=== PATIENT | female | born 1960 | race Hispanic/Latino ===

== ENCOUNTER 2016-09-27 18:06 | Emergency (ER) | payer SELFPAY ==
[2016-09-27 20:48] LABS: Hematocrit 38.7 % (30.3-42.9); Hemoglobin 12.7 gm/dl (10.1-14.3); Mean Corpuscular HGB Conc 33 % (30-34); Mean Corpuscular Hemoglobin 27 pg (28-32); Mean Corpuscular Volume 84 fl (79-97); Platelet Count 231 K/mm3 (140-440); Red Blood Count 4.62 M/mm3 (3.65-5.03); Red Cell Distribution Width 14.3 % (13.2-15.2); White Blood Count 5.3 K/mm3 (4.5-11.0)
[2016-09-27 21:11] LABS: Anion Gap 20 mmol/L; BUN/Creatinine Ratio 14.28; Blood Urea Nitrogen 10 mg/dL (7-17); Carbon Dioxide 25 mmol/L (22-30); Chloride 101.4 mmol/L (98-107); Glucose 139 mg/dL (65-100); Sodium 142 mmol/L (137-145)
[2016-09-27 21:51] LABS: Bacteria,Urine 1+ /HPF (Negative); Bilirubin,Urine NEG (Negative); Blood,Urine NEG (Negative); Ketones,Urine NEG (Negative); Leukocyte Esterase,Urine MOD (Negative); Mucus,Urine 1+ /HPF; Nitrite,Urine NEG (Negative); Urobilinogen,Urine < 2.0 mg/dL (<2.0)
--- NOTE | 2016-09-27 23:42 | Emergency Department Report ---
ED General Adult HPI - General Chief complaint: Medical Clearance Stated complaint: MEDS REFILL Time Seen by Provider: 09/27/16 23:29 Source: patient, RN notes reviewed Mode of arrival: Ambulatory Limitations: No Limitations - History of Present Illness Initial comments: This is a 56-year-old female. She is previously unknown to me. She reports a past medical history of diabetes, seizure, irregular heartbeat, multiple sclerosis, bradycardia, tachycardia. The patient presents to the ER requesting a refill on her propranolol. She reports that she is on propranolol since 1984. Because of insurance issue she has not been able to follow-up with a primary care doctor on a regular basis, and she is following up at an outpatient clinic. She reports intermittent shortness of breath, which has been present for months to years. This is not new, worsening or different. She reports that she feels like her heart is skipping a beat intermittently. There is no chest pain. The patient denies diaphoresis, vomiting, leg pain, leg swelling, recent trips greater than 4 hours. She reports that her main complaint is the desire to have her propranolol refill. -: Gradual, month(s), year(s) Consistency: intermittent Improves with: none Worsens with: none Associated Symptoms: shortness of breath. denies: confusion, chest pain, cough - Related Data Previous Rx's Medication Instructions Recorded Last Taken Type Propranolol HCl 20 mg PO BID #60 tab 09/28/16 Unknown Rx Allergies Allergy/AdvReac Type Severity Reaction Status Date / Time aspirin Allergy Unknown Verified 09/27/16 19:21 doxycycline Allergy Rash Verified 09/27/16 19:21 Penicillins Allergy Rash Verified 09/27/16 19:21 yellow dye Allergy Nausea Verified 09/27/16 19:21 ED Review of Systems ROS: Stated complaint: MEDS REFILL Other details as noted in HPI Constitutional: denies: fever Eyes: denies: eye discharge ENT: denies: epistaxis Respiratory: shortness of breath Cardiovascular: palpitations Gastrointestinal: denies: abdominal pain Genitourinary: as per HPI Musculoskeletal: denies: back pain Skin: denies: lesions Psychiatric: anxiety ED Past Medical Hx - Past Medical History Hx Diabetes: Yes Hx Seizures: Yes Additional medical history: tachycardia,irreg HR,multiple sclerosis,breast CA - Surgical History Additional Surgical History: right mastectomy 2005 - Social History Smoking Status: Current Every Day Smoker Substance Use Type: None - Medications Home Medications: Home Medications Medication Instructions Recorded Confirmed Last Taken Type Propranolol HCl 20 mg PO BID #60 tab 09/28/16 Unknown Rx ED Physical Exam - General Limitations: No Limitations General appearance: alert, in no apparent distress - Head Head exam: Present: atraumatic, normocephalic - Eye Eye exam: Present: normal appearance, PERRL, EOMI. Absent: nystagmus - ENT ENT exam: Present: normal exam, normal orophraynx, mucous membranes moist, normal external ear exam - Neck Neck exam: Present: normal inspection, full ROM. Absent: tenderness, meningismus - Respiratory Respiratory exam: Present: normal lung sounds bilaterally. Absent: respiratory distress, wheezes, rales, rhonchi, stridor, chest wall tenderness - Cardiovascular Cardiovascular Exam: Present: regular rate, normal rhythm, normal heart sounds. Absent: bradycardia, tachycardia, irregular rhythm, systolic murmur, diastolic murmur, rubs, gallop - GI/Abdominal GI/Abdominal exam: Present: soft, normal bowel sounds. Absent: distended, tenderness, guarding, rebound, rigid, pulsatile mass - Extremities Exam Extremities exam: Present: normal inspection, full ROM, normal capillary refill. Absent: tenderness, pedal edema, joint swelling, calf tenderness - Back Exam Back exam: Present: normal inspection, full ROM. Absent: tenderness, CVA tenderness (R), CVA tenderness (L), muscle spasm, paraspinal tenderness, vertebral tenderness - Neurological Exam Neurological exam: Present: alert, oriented X3, normal gait, other (Extraocular movements intact. Tongue midline. No facial droop. Facial sensation intact to light touch in the V1, V2, V3 distribution bilaterally. 5 and 5 strength in 4 extremities.. Sensation is intact to light touch in 4 extremities.). Absent : motor sensory deficit - Psychiatric Psychiatric exam: Present: normal affect, normal mood - Skin Skin exam: Present: warm, dry, intact, normal color. Absent: rash ED Course Vital Signs 09/27/16 09/28/16 09/28/16 19:14 00:32 01:27 Temperature 98.4 F 98.0 F Pulse Rate 81 72 Respiratory 18 20 20 Rate Blood Pressure 176/96 Blood Pressure 174/78 [Left] O2 Sat by Pulse 100 98 98 Oximetry - Reevaluation(s) Reevaluation #1: 09/28/16 00:32 Differential diagnosis: Medication refill, arrhythmia, electrolyte imbalance, thyroid abnormality Assessment and plan: 56-year-old female with months to years of intermittent shortness of breath, whose main complaint is to have her propanolol refilled. She is not having chest pain, she has chronic shortness of breath which is not new, worsening or different. Shortness of breath is not her main complaint. Her physical examination is unremarkable, her pulmonary examination is unremarkable. Initial EKG demonstrated bigeminy, which essentially resolved. Her electrolytes were unremarkable, thyroid panel is ordered, the patient prefers to have a primary care doctor or deputy k 9 followed up as an outpatient. The patient's case and EKGs were specifically discussed with the deputy k 9 software quality automation engineer, Dr. Kar Tubbs, who recommended propanolol, 20 mg twice daily, and recommended that the patient follow-up with him in the office within the next week. The patient is instructed as to the importance of outpatient primary care and cardiology follow-up. She will be discharged at this time. Return precautions are extensively reviewed. Given duration of symptoms, lack of acute changes, I don't believe the patient requires acute coronary syndrome risk stratification at this time. ED Medical Decision Making - Lab Data Result diagrams: 09/27/16 20:35 09/27/16 20:35 Vital Signs 09/27/16 09/28/16 19:14 00:32 Temperature 98.4 F 98.0 F Pulse Rate 81 72 Respiratory 18 20 Rate Blood Pressure 176/96 Blood Pressure 174/78 [Left] O2 Sat by Pulse 100 98 Oximetry Lab Results 09/27/16 09/27/16 09/27/16 Range/Units 20:35 20:35 20:35 WBC 5.3 (4.5-11.0) K/mm3 RBC 4.62 (3.65-5.03) M/mm3 Hgb 12.7 (10.1-14.3) gm/dl Hct 38.7 (30.3-42.9) % MCV 84 (79-97) fl MCH 27 L (28-32) pg MCHC 33 (30-34) % RDW 14.3 (13.2-15.2) % Plt Count 231 (140-440) K/mm3 Sodium 142 (137-145) mmol/L Potassium 4.0 (3.6-5.0) mmol/L Chloride 101.4 (98-107) mmol/L Carbon Dioxide 25 (22-30) mmol/L Anion Gap 20 mmol/L BUN 10 (7-17) mg/dL Creatinine 0.7 (0.7-1.2) mg/dL Estimated GFR > 60 ml/min BUN/Creatinine Ratio 14.28 % Glucose 139 H (65-100) mg/dL Calcium 9.0 (8.4-10.2) mg/dL Magnesium (1.7-2.3) mg/dL Troponin T < 0.010 (0.00-0.029) ng/mL Urine Color (Yellow) Urine Turbidity (Clear) Urine pH (5.0-7.0) Ur Specific [place] (1.003-1.030) Urine Protein (Negative) mg/dL Urine Glucose (UA) (Negative) mg/dL Urine Ketones (Negative) mg/dL Urine Blood (Negative) Urine Nitrite (Negative) Urine Bilirubin (Negative) Urine Urobilinogen (<2.0) mg/dL Ur Leukocyte Esterase (Negative) Urine WBC (Auto) (0.0-6.0) /HPF Urine RBC (Auto) (0.0-6.0) /HPF U Epithel Cells (Auto) (0-13.0) /HPF Urine Bacteria (Auto) (Negative) /HPF Urine Mucus /HPF 09/27/16 09/27/16 Range/Units 20:35 21:15 WBC (4.5-11.0) K/mm3 RBC (3.65-5.03) M/mm3 Hgb (10.1-14.3) gm/dl Hct (30.3-42.9) % MCV (79-97) fl MCH (28-32) pg MCHC (30-34) % RDW (13.2-15.2) % Plt Count (140-440) K/mm3 Sodium (137-145) mmol/L Potassium (3.6-5.0) mmol/L Chloride (98-107) mmol/L Carbon Dioxide (22-30) mmol/L Anion Gap mmol/L BUN (7-17) mg/dL Creatinine (0.7-1.2) mg/dL Estimated GFR ml/min BUN/Creatinine Ratio % Glucose (65-100) mg/dL Calcium (8.4-10.2) mg/dL Magnesium 2.1 (1.7-2.3) mg/dL Troponin T (0.00-0.029) ng/mL Urine Color Yellow (Yellow) Urine Turbidity Slightly-cloudy (Clear) Urine pH 5.0 (5.0-7.0) Ur Specific [place] 1.017 (1.003-1.030) Urine Protein 30 mg/dl (Negative) mg/dL Urine Glucose (UA) Neg (Negative) mg/dL Urine Ketones Neg (Negative) mg/dL Urine Blood Neg (Negative) Urine Nitrite Neg (Negative) Urine Bilirubin Neg (Negative) Urine Urobilinogen < 2.0 (<2.0) mg/dL Ur Leukocyte Esterase Mod (Negative) Urine WBC (Auto) 28.0 H (0.0-6.0) /HPF Urine RBC (Auto) 5.0 (0.0-6.0) /HPF U Epithel Cells (Auto) 14.0 H (0-13.0) /HPF Urine Bacteria (Auto) 1+ (Negative) /HPF Urine Mucus 1+ /HPF Urinalysis is contaminated, the patient denies irritative and obstructive urinary symptoms. - EKG Data When compared to previous EKG there are: previous EKG unavailable 09/28/16 00:34 Normal axis, QTC 594 ms, premature ventricular contractions, bigeminy, not morphologically consistent with STEMI, no prior EKG available for comparison. Repeat EKG demonstrates resolution of bigeminy, QTC 434 ms, left ventricular hypertrophy, poor R progression, not morphologically consistent with STEMI. Critical care attestation.: If time is entered above; I have spent that time in minutes in the direct care of this critically ill patient, excluding procedure time. ED Disposition Clinical Impression: Medication refill, Arrhythmia Disposition: DISCHARGED TO HOME OR SELFCARE Is pt being admited?: No Does the pt Need Aspirin: No Condition: Stable Instructions: Palpitations (ED) Additional Instructions: Take the medication as directed. Follow up with the primary care doctor or deputy k 9 within the next week. Dr. French Jean is a local primary care doctor. Dr. Cherry Tubbs is a local photo lab specialist. Laboratory studies were sent today to evaluate your thyroid, and they have not resulted thus far. Please have your primary care doctor or photo lab specialist contact the medical records department to obtain these laboratory results. Return to the ER right away with fevers or chills, chest pain, worsened shortness of breath, intractable nausea or vomiting, inability to tolerate liquid feeds, new, worsening or different symptoms. Prescriptions: Propranolol HCl 20 mg PO BID #60 tab Referrals: PRIMARY CARE, [Primary Care Provider] - 3-5 Days CRISTIAN TUBBS MD [Staff Physician] - 3-5 Days FRENCH JEAN MD [Staff Physician] - 3-5 Days
[2016-09-28 00:34] VITALS: BP 174/78
== END 2016-09-28 01:30 | disposition home or self-care (01) ==
LOC: ED 18:06
DX: Z76.0 Encounter for issue of repeat prescription (principal); I49.9 Cardiac arrhythmia, unspecified; E11.9 Type 2 diabetes mellitus without complications; F17.200 Nicotine dependence, unspecified, uncomplicated; R56.9 Unspecified convulsions; G35 Multiple sclerosis; Z88.0 Allergy status to penicillin; Z88.1 Allergy status to other antibiotic agents; Z88.5 Allergy status to narcotic agent; Z91.041 Radiographic dye allergy status; Z90.11 Acquired absence of right breast and nipple
CPT/HCPCS: 36415; 80048; 81001; 83735; 84439; 84443; 84484; 85027; 93005; 93010; 99283

== ENCOUNTER 2017-02-17 14:37 | Inpatient (IN) | payer SELFPAY ==
[2017-02-17] MEDS ORDERED: ATIVAN IV ONE (15:23)
[2017-02-17] MEDS ORDERED: ZOFRAN IV ONE (17:04)
--- NOTE | 2017-02-17 18:05 | Emergency Department Report ---
ED Syncope HPI - General Chief Complaint: Seizure Stated Complaint: SEIZURE Time Seen by Provider: 02/17/17 17:53 Source: patient - History of Present Illness Initial Comments: 57-year-old female with complaint of feeling lightheaded and dizzy recently. Patient has had a month's worth of lightheaded and dizziness. Today she was walking in the mall "feel lightheaded. She tried to stand up and then felt like she was "drifting way." She was helped to the ground where she had a seizure. She is a known history of seizure. She denies chest pain fevers chills. She's had a mild cough. Timing/Prior Episodes: single episode today Precipitating Factors: Positive: lightheadedness, rapid heart beat Loss of Consciousness: brief (seconds) Current Symptoms: back to normal, lightheadedness. denies: blurred vision, chest pain, diaphoresis, dizziness, injury - Related Data Allergies/Adverse Reactions: Allergies aspirin Allergy (Verified 09/27/16 19:21) Unknown doxycycline Allergy (Verified 09/27/16 19:21) Rash Penicillins Allergy (Verified 09/27/16 19:21) Rash yellow dye Allergy (Verified 09/27/16 19:21) Nausea Home Medications: Ambulatory Orders Propranolol HCl 20 mg PO BID #60 tab 09/28/16 ED Review of Systems ROS: Stated complaint: SEIZURE Other details as noted in HPI Comment: All other systems reviewed and negative Constitutional: denies: chills, fever Eyes: denies: eye pain, eye discharge, vision change ENT: denies: ear pain, throat pain Respiratory: denies: cough, shortness of breath, wheezing Cardiovascular: palpitations. denies: chest pain Endocrine: no symptoms reported Gastrointestinal: denies: abdominal pain, nausea, diarrhea Genitourinary: denies: urgency, dysuria, discharge Musculoskeletal: denies: back pain, joint swelling, arthralgia Skin: denies: rash, lesions Neurological: denies: headache, weakness, paresthesias Psychiatric: denies: anxiety, depression Hematological/Lymphatic: denies: easy bleeding, easy bruising ED Past Medical Hx - Past Medical History Hx Diabetes: Yes Hx Seizures: Yes Hx HIV: Yes Additional medical history: tachycardia,irreg HR,multiple sclerosis,breast CA - Surgical History Past Surgical History?: Yes Additional Surgical History: right mastectomy 2005 - Social History Smoking Status: Never Smoker Substance Use Type: None - Medications Home Medications: Home Medications Medication Instructions Recorded Confirmed Last Taken Type Propranolol HCl 20 mg PO BID #60 tab 09/28/16 Unknown Rx ED Physical Exam - General Limitations: No Limitations General appearance: alert, in no apparent distress, obese - Head Head exam: Present: atraumatic, normocephalic - Eye Eye exam: Present: normal appearance. Absent: scleral icterus, conjunctival injection - ENT ENT exam: Present: mucous membranes moist - Neck Neck exam: Present: normal inspection. Absent: lymphadenopathy, thyromegaly - Respiratory Respiratory exam: Present: normal lung sounds bilaterally. Absent: respiratory distress, wheezes, rales - Cardiovascular Cardiovascular Exam: Present: tachycardia, irregular rhythm (occasional PVCs). Absent: systolic murmur, diastolic murmur, rubs, gallop - GI/Abdominal GI/Abdominal exam: Present: soft, normal bowel sounds. Absent: distended, tenderness - Extremities Exam Extremities exam: Present: normal inspection - Back Exam Back exam: Present: normal inspection - Neurological Exam Neurological exam: Present: alert, oriented X3 - Psychiatric Psychiatric exam: Present: normal affect, normal mood - Skin Skin exam: Present: warm, dry, intact, normal color. Absent: rash ED Course Vital Signs 02/17/17 02/17/17 02/17/17 15:12 15:52 16:00 Temperature 98.2 F Pulse Rate 102 H 103 H Respiratory 16 13 Rate Blood Pressure 176/83 Blood Pressure 149/62 [Left] O2 Sat by Pulse 99 99 97 Oximetry 02/17/17 02/17/17 02/17/17 16:15 16:30 16:45 Temperature Pulse Rate 100 H 98 H 99 H Respiratory 13 13 11 L Rate Blood Pressure 157/71 157/71 162/74 Blood Pressure [Left] O2 Sat by Pulse 98 96 97 Oximetry 02/17/17 02/17/17 02/17/17 17:00 17:16 17:26 Temperature 98.3 F Pulse Rate 98 H 102 H 89 Respiratory 10 L 18 16 Rate Blood Pressure 162/74 162/67 Blood Pressure 149/87 [Left] O2 Sat by Pulse 97 99 99 Oximetry 02/17/17 02/17/17 02/17/17 17:31 17:45 18:01 Temperature Pulse Rate 95 H 94 H 102 H Respiratory 14 13 11 L Rate Blood Pressure 162/61 158/58 171/68 Blood Pressure [Left] O2 Sat by Pulse 98 98 100 Oximetry 02/17/17 02/17/17 02/17/17 18:31 19:11 19:24 Temperature Pulse Rate Respiratory Rate Blood Pressure 171/68 171/68 171/68 Blood Pressure [Left] O2 Sat by Pulse Oximetry ED Medical Decision Making - Lab Data Result diagrams: 02/17/17 18:21 02/17/17 18:21 Laboratory Results - last 24 hr 02/17/17 02/17/17 02/17/17 18:21 18:21 18:21 WBC 6.4 RBC 4.42 Hgb 12.4 Hct 38.4 MCV 87 MCH 28 MCHC 32 RDW 15.0 Plt Count 220 Lymph % (Auto) 30.0 [place] % (Auto) 9.7 H Eos % (Auto) 1.4 Baso % (Auto) 1.2 Lymph # 1.9 [place] # 0.6 Eos # 0.1 Baso # 0.1 Seg Neutrophils % 57.7 Seg Neutrophils # 3.7 PT 14.0 INR 1.03 Sodium 142 Potassium 4.2 Chloride 104.1 Carbon Dioxide 23 Anion Gap 19 BUN 12 Creatinine 0.6 L Estimated GFR > 60 BUN/Creatinine Ratio 20.00 Glucose 97 Calcium 8.9 Magnesium Total Bilirubin 0.30 AST 35 ALT 44 Alkaline Phosphatase 105 Troponin T < 0.010 Total Protein 8.1 Albumin 3.8 L Albumin/Globulin Ratio 0.9 TSH 02/17/17 02/17/17 18:21 18:21 WBC RBC Hgb Hct MCV MCH MCHC RDW Plt Count Lymph % (Auto) [place] % (Auto) Eos % (Auto) Baso % (Auto) Lymph # [place] # Eos # Baso # Seg Neutrophils % Seg Neutrophils # PT INR Sodium Potassium Chloride Carbon Dioxide Anion Gap BUN Creatinine Estimated GFR BUN/Creatinine Ratio Glucose Calcium Magnesium 2.20 Total Bilirubin AST ALT Alkaline Phosphatase Troponin T Total Protein Albumin Albumin/Globulin Ratio TSH 1.060 - EKG Data -: EKG Interpreted by Me - EKG Data 02/17/17 19:45 Sinus tach 102 multiple PVCs no obvious ST-T wave changes. - Radiology Data Radiology results: image reviewed - Medical Decision Making 57-year-old female with recent episodes of lightheadedness dizziness and tachycardia. The course of last months she's had worsening symptoms. Today she felt lightheaded and passing out. She is tachycardic in the room and has multiple PVCs. At this point labs including hematocrit chemistries and TSH look unremarkable. EKG is with multiple PVCs Discussed case with hospitalist and plan admitted to their service. Portions of this chart were dictated with dictation software. There may be dictation errors contained within this note. Critical care attestation.: If time is entered above; I have spent that time in minutes in the direct care of this critically ill patient, excluding procedure time. ED Disposition Clinical Impression: Syncope, Tachycardia Disposition: DC-09 OP ADMIT IP TO THIS HOSP Is pt being admited?: Yes Condition: Stable Instructions: Syncope (ED) Referrals: PRIMARY CARE, [Primary Care Provider] - 3-5 Days
[2017-02-17] MEDS ORDERED: NACL 0.9% 1000 ML 1,000 ML IV ONE (18:06)
[2017-02-17 18:52] LABS: Alanine Aminotransferase 44 units/L (7-56); Albumin 3.8 g/dL (3.9-5); Albumin/Globulin Ratio 0.9 %; Alkaline Phosphatase 105 units/L (35-129); Anion Gap 19 mmol/L; Blood Urea Nitrogen 12 mg/dL (7-17); Calcium 8.9 mg/dL (8.4-10.2); Carbon Dioxide 23 mmol/L (22-30); Chloride 104.1 mmol/L (98-107); Glucose 97 mg/dL (65-100); Potassium 4.2 mmol/L (3.6-5.0); Sodium 142 mmol/L (137-145); Total Protein 8.1 g/dL (6.3-8.2)
[2017-02-17 18:58] LABS: Basophils % (Auto) 1.2 % (0.0-1.8); Eosinophils % (Auto) 1.4 % (0.0-4.3); Hematocrit 38.4 % (30.3-42.9); Hemoglobin 12.4 gm/dl (10.1-14.3); Mean Corpuscular HGB Conc 32 % (30-34); Mean Corpuscular Hemoglobin 28 pg (28-32); Mean Corpuscular Volume 87 fl (79-97); Platelet Count 220 K/mm3 (140-440); Red Blood Count 4.42 M/mm3 (3.65-5.03); White Blood Count 6.4 K/mm3 (4.5-11.0)
[2017-02-17 19:08] LABS: INR 1.03 (0.87-1.13)
[2017-02-18] MEDS ORDERED: ZOFRAN IV ONE (01:34)
[2017-02-18] MEDS ORDERED: ZOFRAN ONE (01:39)
[2017-02-18] MEDS ORDERED: ZOFRAN IV PRN (03:25)
[2017-02-18] MEDS ORDERED: ATIVAN IV PRN (03:26)
[2017-02-18] MEDS ORDERED: NACL 0.9% 1000 ML 1,000 ML IV SCH (04:00)
--- NOTE | 2017-02-18 04:46 | Cat Scan Report ---
FINAL REPORT PROCEDURE: CT HEAD/BRAIN WO CON TECHNIQUE: Computerized tomography of the head was performed without contrast material. HISTORY: SYNCOPE AND SEIZURE COMPARISON: No prior studies are available for comparison. FINDINGS: Skull and scalp: Normal. Paranasal sinuses: Mild opacification of the ethmoid sinuses.. Ventricles and subarachnoid spaces: Normal. Cerebrum: No evidence of hemorrhage, acute infarction or mass . Cerebellum and brainstem: No evidence of hemorrhage, acute infarction or mass. Vasculature: Normal. Comments: None. IMPRESSION: There is no evidence of an acute intracranial process
[2017-02-18] MEDS ORDERED: PAXIL PO SCH ×2 (08:00)
[2017-02-18 08:03] LABS: Creatine Kinase 43 units/L (30-135)
[2017-02-18 08:10] LABS: Creatine Kinase MB < 1.0 ng/mL (0.0-4.0)
--- NOTE | 2017-02-18 09:35 | XRay Report ---
AP CHEST :02/17/17 CLINICAL: Syncope. COMPARISON:None. FINDINGS: Normal heart and pulmonary vasculature. The lungs are normally expanded and clear. The bones and soft tissues are normal. IMPRESSION: Normal chest.
[2017-02-18] MEDS ORDERED: KEPPRA PO SCH (10:00)
[2017-02-18] MEDS ORDERED: VISTARIL PO SCH (10:00)
[2017-02-18] MEDS ORDERED: [UNRECOGNIZED DRUG - OTHER] PO SCH (10:00)
[2017-02-18] MEDS ORDERED: MV MIN PO SCH (10:00)
[2017-02-18] MEDS ORDERED: THERAGRAN-M Tab PO SCH (10:00)
[2017-02-18] MEDS ORDERED: IRON CARBONYL PO SCH (10:00)
--- NOTE | 2017-02-18 10:21 | History and Physical Report ---
CHIEF COMPLAINT: Seizure attack and syncope. HISTORY OF PRESENT ILLNESS: The patient is a 57-year-old female, who said that she was going into the shop and then started feeling lightheaded and dizzy and felt like she was going to pass out or drift away as she put it and she was helped to the groun d by somebody. She says she did not remember the next thing but then she realized that somebody was standing and helping her, asking her whether she was okay. There was no history of chest pain, no history of shortness of breath, fever or chills; however, the patient states she had some mild cough and has been having this feeling of lightheadedness going on for about 10 months. When the patient was unconscious, she was noted to be shaking all over, believed to be due to seizure. PAST MEDICAL HISTORY: Pertinent for diabetes mellitus, seizure disorder, HIV infection, tachycardia with irregular heartbeat. Also, there is past history of multiple sclerosis and breast cancer. PAST SURGICAL HISTORY: Pertinent for right mastectomy. FAMILY HISTORY: Noncontributory. SOCIAL HISTORY: The patient does not smoke, does not drink alcohol and does not use illicit drugs. MEDICATIONS: The patient is on propranolol 20 mg by mouth twice daily. ALLERGIES: The patient is allergic to ASPIRIN, DOXYCYCLINE, PENICILLIN AND YELLOW DYE. REVIEW OF SYSTEMS: CONSTITUTIONAL: There is no fever, no chills, no diaphoresis. HEENT: There is no headache or sore throat. CARDIOVASCULAR: There is no chest pain or orthopnea. RESPIRATORY: There is no shortness of breath, but there is cough. GASTROINTESTINAL: There is no nausea, no vomiting, no abdominal pain, diarrhea or constipation. NEUROLOGICAL: Dizziness present, altered mental status present, syncopal attack present, seizure present. MUSCULOSKELETAL: There is no joint pain or swelling. DERMATOLOGICAL SYSTEM: There is no skin rash or itching. GENITOURINARY: There is no dysuria, hematuria, or flank pain. Rest of system review is normal. PHYSICAL EXAMINATION: GENERAL: At the time of exam, the patient was found to be alert, oriented x 3 and not in acute distress. VITAL SIGNS: Shows normal temperature with pulse of 97, respirations 16, blood pressure 169/86. HEENT: Showed pupils to be equal, round, reactive to light and accommodation. Extraocular muscles are intact. NECK: Supple with no JVD or carotid bruit. CARDIOVASCULAR: Show first and second heart sounds with no gallops or murmur. RESPIRATORY: Showed good air entry on both sides of the lung with no abnormal breath sounds. GASTROINTESTINAL: Show abdomen to be full, soft, nontender with no organomegaly or rigidity. NEUROLOGIC: Shows no focal deficit. MUSCULOSKELETAL: Show no joint swelling or tenderness. DERMATOLOGICAL: Show no skin rash. GENITOURINARY: Showing no costovertebral angle tenderness. PERTINENT LABORATORY DATA AND IMAGING STUDIES: The patient had chemistry done that was unremarkable except for slight decrease in albumin level of 3.8 and a slightly decreased creatinine level of 0.6. Coagulation studies were unremarkable. CBC was also unremarkable except for CBC with differential that shows increase in monocyte count of 9.7%. IMAGING STUDIES: The patient had a CT of the head without contrast done that shows no acute lesion. DIAGNOSES: 1. Postictal state. 2. Syncopal attack. PLAN: The patient will be admitted to medical floor and will have Neurology consult with ( ) and will have cardiac enzymes checked q.6 hours x 2 more levels. The patient will be on IV lorazepam 1 mg every 2 hours as needed for seizure attack and will be on Zofran 4 mg every 8 hours for nausea and vomiting. The patient will also have bilateral carotid Doppler done this morning and will have 2D echo done this morning. The patient will be on Keppra 500 mg by mouth twice daily and will be on her home medications as shown in the medication reconciliation section. JOB# [id number] OCN/NTS
[2017-02-18] MEDS ORDERED: NOVOLOG SUB-Q SCH (11:30)
[2017-02-18 11:35] VITALS: BP 158/80
[2017-02-18 12:58] LABS: Creatine Kinase 44 units/L (30-135)
[2017-02-18 13:15] LABS: Creatine Kinase MB < 1.0 ng/mL (0.0-4.0)
--- NOTE | 2017-02-18 14:18 | Progress Note ---
Assessment and Plan Assessment and plan: Patient is a 57-year-old woman history of diet-controlled type 2 diabetes mellitus, hypertension, seizure disorder, right breast cancer status post vasectomy, ex-tobacco smoker, irregular heartbeat, multiple sclerosis and recent diagnosis of HIV at the [facility] Department who presents with nausea, warm under the collar, diaphoresis and eventual syncopal episode. She denies any seizures, no tongue biting, little biting or incontinence. She did have palpitations. CT head read as no acute findings -Syncopal episode either vasovagal versus seizure versus arrhythmia(telemetry shows multiple PVCs): Continue to monitor on telemetry -Accelerated hypertension: Treated with antihypertensives, low-salt diet -Type 2 diabetes mellitus: ADA diet and sliding scale -Seizure Disorder: We will start her seizure medication Patient is threatening to leave [place] due to a family emergency and she needs to continue inpatient care to monitor for arrhythmias and She needs echocardiogram and carotid ultrasound History Interval history: Patient was seen and examined. Follow-up on current diagnosis/syncope which has resolved. Overnight uneventful. Patient denies any chest pain, shortness breath, nausea/vomiting or severe headaches. Imaging, nursing note, chart, labs and old chart reviewed. Discussed with patient. Hospitalist Physical - Physical exam Narrative exam: GEN: WDWN, NAD, AWAKE, ALERT, ORIENTATED 3 morbid obesity BMI 37 HEENT: NCAT, EOMI, PERRL, OP Clear NECK: supple, no adenopathy, no thyromegaly, no JVD CVS/HEART: RRR, NORMAL S1S2, NO JVD, pulses present bilaterally CHEST/LUNGS: CTA B, Symmetrical chest expansion, good air entry bilaterally GI/Abdomen: soft, NTND, good bowel sounds, no guarding or rebound /Bladder: no suprapubic tenderness, no CVA or paraspinal tenderness EXT/Skin: no c/c/e, no significant edema or obvious rash MSK: FROM x 4 Neuro: CN 2-12 grossly intact, no new focal deficits Psych: calm - Constitutional Vitals: Temp Pulse Resp BP Pulse Ox 98.3 F 96 H 20 158/80 98 02/18/17 11:32 02/18/17 11:32 02/18/17 11:32 02/18/17 11:32 02/18/17 08:07 Results - Labs CBC & Chem 7: 02/17/17 18:21 02/17/17 18:21 Labs: Laboratory Last Values WBC 6.4 K/mm3 (4.5-11.0) 02/17/17 18:21 RBC 4.42 M/mm3 (3.65-5.03) 02/17/17 18:21 Hgb 12.4 gm/dl (10.1-14.3) 02/17/17 18:21 Hct 38.4 % (30.3-42.9) 02/17/17 18:21 MCV 87 fl (79-97) 02/17/17 18:21 MCH 28 pg (28-32) 02/17/17 18:21 MCHC 32 % (30-34) 02/17/17 18:21 RDW 15.0 % (13.2-15.2) 02/17/17 18:21 Plt Count 220 K/mm3 (140-440) 02/17/17 18:21 Lymph % (Auto) 30.0 % (13.4-35.0) 02/17/17 18:21 Bartholomew % (Auto) 9.7 % (0.0-7.3) H 02/17/17 18:21 Eos % (Auto) 1.4 % (0.0-4.3) 02/17/17 18:21 Baso % (Auto) 1.2 % (0.0-1.8) 02/17/17 18:21 Lymph # 1.9 K/mm3 (1.2-5.4) 02/17/17 18:21 Bartholomew # 0.6 K/mm3 (0.0-0.8) 02/17/17 18:21 Eos # 0.1 K/mm3 (0.0-0.4) 02/17/17 18:21 Baso # 0.1 K/mm3 (0.0-0.1) 02/17/17 18:21 Seg Neutrophils % 57.7 % (40.0-70.0) 02/17/17 18:21 Seg Neutrophils # 3.7 K/mm3 (1.8-7.7) 02/17/17 18:21 PT 14.0 Sec. (12.2-14.9) 02/17/17 18:21 INR 1.03 (0.87-1.13) 02/17/17 18:21 Sodium 142 mmol/L (137-145) 02/17/17 18:21 Potassium 4.2 mmol/L (3.6-5.0) 02/17/17 18:21 Chloride 104.1 mmol/L (98-107) 02/17/17 18:21 Carbon Dioxide 23 mmol/L (22-30) 02/17/17 18:21 Anion Gap 19 mmol/L 02/17/17 18:21 BUN 12 mg/dL (7-17) 02/17/17 18:21 Creatinine 0.6 mg/dL (0.7-1.2) L 02/17/17 18:21 Estimated GFR > 60 ml/min 02/17/17 18:21 BUN/Creatinine Ratio 20.00 % 02/17/17 18:21 Glucose 97 mg/dL (65-100) 02/17/17 18:21 Calcium 8.9 mg/dL (8.4-10.2) 02/17/17 18:21 Magnesium 2.20 mg/dL (1.7-2.3) 02/17/17 18:21 Total Bilirubin 0.30 mg/dL (0.1-1.2) 02/17/17 18:21 AST 35 units/L (5-40) 02/17/17 18:21 ALT 44 units/L (7-56) 02/17/17 18:21 Alkaline Phosphatase 105 units/L (35-129) 02/17/17 18:21 Total Creatine Kinase 44 units/L (30-135) 02/18/17 12:01 CK-MB (CK-2) < 1.0 ng/mL (0.0-4.0) 02/18/17 12:01 CK-MB (CK-2) Rel Index 2.2 (0-4) 02/18/17 12:01 Troponin T < 0.010 ng/mL (0.00-0.029) 02/18/17 12:01 Total Protein 8.1 g/dL (6.3-8.2) 02/17/17 18:21 Albumin 3.8 g/dL (3.9-5) L 02/17/17 18:21 Albumin/Globulin Ratio 0.9 % 02/17/17 18:21 TSH 1.060 mlU/mL (0.270-4.200) 02/17/17 18:21
--- NOTE | 2017-02-18 14:21 | Discharge Summary ---
Providers - Providers Date of Admission: 02/18/17 03:20 Attending physician: SOPHY SANFORD 02/18/17 06:27 Consult to Physician [CONS] Routine Consulting Provider: BAYRON LOCKWOOD Reason For Exam: SYNCOPE AND SEIZURE Place consult to:: BAYRON LOCKWOOD Notified:: yes Was contact made?: No Time called:: 08:16 Comment:: left message with jordin . put on dr list Primary care physician: [employer] Hospitalization Condition: Stable Hospital course: Patient is a 57-year-old woman history of diet-controlled type 2 diabetes mellitus, hypertension, seizure disorder, right breast cancer status post vasectomy, ex-tobacco smoker, irregular heartbeat, multiple sclerosis and recent diagnosis of HIV at the [facility] who presents with nausea, warm under the collar, diaphoresis and eventual syncopal episode. She denies any seizures, no tongue biting, little biting or incontinence. She did have palpitations. CT head read as no acute findings -Syncopal episode either vasovagal versus seizure versus arrhythmia(telemetry shows multiple PVCs): Continue to monitor on telemetry -Accelerated hypertension: Treated with antihypertensives, low-salt diet -Type 2 diabetes mellitus: ADA diet and sliding scale -Seizure Disorder: We will start her seizure medication Patient is threatening to leave [facility] due to a family emergency and she needs to continue inpatient care to monitor for arrhythmias and She needs echocardiogram and carotid ultrasound Disposition: DC-07 LEFT AGAINST MED ADVICE Core Measure Documentation - Palliative Care Palliative Care/ Comfort Measures: Not Applicable - Core Measures Any of the following diagnoses?: none - VTE Discharge Requirements Deep Vein Thrombosis/Pulmonary Embolism Present on Admission: No Has pt received <5 days of overlap therapy or INR<2.0: No Anticoagulant overlap therapy prescribed at discharge: No Contraindication No Overlap Therapy order at DC: Not Indicated Exam - Physical Exam Narrative exam: GEN: WDWN, NAD, AWAKE, ALERT, ORIENTATED 3 morbid obesity BMI 37 HEENT: NCAT, EOMI, PERRL, OP Clear NECK: supple, no adenopathy, no thyromegaly, no JVD CVS/HEART: RRR, NORMAL S1S2, NO JVD, pulses present bilaterally CHEST/LUNGS: CTA B, Symmetrical chest expansion, good air entry bilaterally GI/Abdomen: soft, NTND, good bowel sounds, no guarding or rebound /Bladder: no suprapubic tenderness, no CVA or paraspinal tenderness EXT/Skin: no c/c/e, no significant edema or obvious rash MSK: FROM x 4 Neuro: CN 2-12 grossly intact, no new focal deficits Psych: calm - Constitutional Vitals: Temp Pulse Resp BP Pulse Ox 98.3 F 96 H 20 158/80 98 02/18/17 11:32 02/18/17 11:32 02/18/17 11:32 02/18/17 11:32 02/18/17 08:07 Plan Activity: no driving until cleared by PCP, other (no strenous activity until cleared by pcp) Diet: low salt, diabetic Follow up with: PRIMARY CARE, [Primary Care Provider] - 3-5 Days
[2017-02-18] MEDS ORDERED: DESYREL PO SCH (22:00)
== END 2017-02-18 14:38 | disposition left against medical advice (07) | DRG 101 ==
LOC: ED 14:37 → 4A 02-18 03:20
PROVIDERS: ADMIT Internal Medicine; ATTEND Internal Medicine
DX: G40.909 Epilepsy, unspecified, not intractable, without status epilepticus (principal); R55 Syncope and collapse; I49.9 Cardiac arrhythmia, unspecified; I49.3 Ventricular premature depolarization; G35 Multiple sclerosis; E11.9 Type 2 diabetes mellitus without complications; I10 Essential (primary) hypertension; Z85.3 Personal history of malignant neoplasm of breast; Z88.6 Allergy status to analgesic agent; Z88.0 Allergy status to penicillin; Z91.041 Radiographic dye allergy status; Z90.11 Acquired absence of right breast and nipple
CPT/HCPCS: 36415; 70450; 71010; 80053; 82550; 82553; 82962; 83735; 84443; 84484; 85025; 85610; 93005; 93010; 96361; 96374; 96375; J2405; J7030; Q0177

== ENCOUNTER 2017-11-22 05:05 | Inpatient (IN) | payer OTHER ==
[2017-11-22 05:50] LABS: Basophils % (Auto) 0.3 % (0.0-1.8); Eosinophils % (Auto) 0.3 % (0.0-4.3); Hematocrit 38.8 % (30.3-42.9); Hemoglobin 12.8 gm/dl (10.1-14.3); Lymphocytes # (Auto) 0.5 K/mm3 (1.2-5.4); Lymphocytes % (Auto) 6.1 % (13.4-35.0); Mean Corpuscular HGB Conc 33 % (30-34); Mean Corpuscular Hemoglobin 30 pg (28-32); Mean Corpuscular Volume 90 fl (79-97); Monocytes # (Auto) 0.5 K/mm3 (0.0-0.8); Monocytes % (Auto) 5.2 % (0.0-7.3); Platelet Count 218 K/mm3 (140-440); Red Blood Count 4.34 M/mm3 (3.65-5.03)
[2017-11-22 05:55] LABS: Bacteria,Urine 4+ /HPF (Negative); Bilirubin,Urine NEG (Negative); Blood,Urine SM (Negative); Color,Urine Yellow (Yellow); Mucus,Urine 2+ /HPF; Urobilinogen,Urine < 2.0 mg/dL (<2.0)
[2017-11-22 06:08] LABS: Alanine Aminotransferase 15 units/L (7-56); Albumin 4.3 g/dL (3.9-5); BUN/Creatinine Ratio 18; Blood Urea Nitrogen 11 mg/dL (7-17); Calcium 8.8 mg/dL (8.4-10.2); Hemolysis Index 4; Lipase 17 units/L (13-60)
--- NOTE | 2017-11-22 06:29 | Emergency Department Report ---
ED General Adult HPI - General Chief complaint: Nausea/Vomiting/Diarrhea Stated complaint: N/V/D Time Seen by Provider: 11/22/17 06:28 Source: patient, EMS Mode of arrival: Stretcher Limitations: No Limitations - History of Present Illness Initial comments: 57 year old female currently noncompliant with her HIV medicines but states he has a prescription in her pocketbook. She complains of epigastric discomfort which does not radiate and is poorly described. Head and has been associated with nausea vomiting and diarrhea. She denies GI bleeding. She states that she had a "cold chill" but denies any actual fever. Her abdominal pain is very poorly characterized. There is mildly persistent. She has a history of hysterectomy but no recent surgery. The pain is nonradiating. She denies any chest pain or shortness of breath. -: Gradual, hour(s) Location: abdomen Radiation: non-radiation Severity scale (0 -10): 6 Quality: aching (poorly characterized) Consistency: intermittent Improves with: none Worsens with: none Associated Symptoms: nausea/vomiting (and diarrhea) Treatments Prior to Arrival: none - Related Data Home Medications Medication Instructions Recorded Confirmed Last Taken Multivit-Min36/Iron/Folic Acid 1 tab PO QDAY 02/17/17 02/17/17 Unknown [Geritol Complete Tablet] PARoxetine [Paxil] 40 mg PO TID 02/17/17 02/17/17 Unknown carBAMazepine [TEGretol] 200 mg PO TID 02/17/17 02/17/17 Unknown hydrOXYzine PAMOATE [Vistaril] 25 mg PO BID 02/17/17 02/17/17 Unknown traZODone [Desyrel] 100 mg PO QHS 02/17/17 02/17/17 Unknown Allergies Allergy/AdvReac Type Severity Reaction Status Date / Time aspirin Allergy Unknown Verified 09/27/16 19:21 codeine Allergy Nausea Verified 11/22/17 07:51 doxycycline Allergy Rash Verified 09/27/16 19:21 Penicillins Allergy Rash Verified 09/27/16 19:21 Sulfa (Sulfonamide Allergy Hives Verified 11/22/17 07:51 Antibiotics) yellow dye Allergy Nausea Verified 09/27/16 19:21 meperidine [From Demerol] AdvReac Anaphylaxis Verified 11/22/17 07:51 morphine AdvReac Anaphylaxis Verified 11/22/17 07:51 ED Review of Systems ROS: Stated complaint: N/V/D Other details as noted in HPI Constitutional: denies: chills, fever Eyes: denies: eye pain, eye discharge, vision change ENT: denies: ear pain, throat pain Respiratory: denies: cough, shortness of breath, wheezing Cardiovascular: denies: chest pain, palpitations Endocrine: no symptoms reported Gastrointestinal: as per HPI, abdominal pain, nausea, vomiting, diarrhea Genitourinary: denies: urgency, dysuria, discharge Musculoskeletal: denies: back pain, joint swelling, arthralgia Skin: denies: rash, lesions Neurological: denies: headache, weakness, paresthesias Psychiatric: denies: anxiety, depression Hematological/Lymphatic: denies: easy bleeding, easy bruising ED Past Medical Hx - Past Medical History Hx Hypertension: Yes Hx Diabetes: Yes Hx Seizures: Yes Hx HIV: Yes Additional medical history: tachycardia,irreg HR,multiple sclerosis,breast CA - Surgical History Additional Surgical History: right mastectomy 2005 - Social History Smoking Status: Never Smoker Substance Use Type: None - Medications Home Medications: Home Medications Medication Instructions Recorded Confirmed Last Taken Type Multivit-Min36/Iron/Folic Acid 1 tab PO QDAY 02/17/17 02/17/17 Unknown History [Geritol Complete Tablet] PARoxetine [Paxil] 40 mg PO TID 02/17/17 02/17/17 Unknown History carBAMazepine [TEGretol] 200 mg PO TID 02/17/17 02/17/17 Unknown History hydrOXYzine PAMOATE [Vistaril] 25 mg PO BID 02/17/17 02/17/17 Unknown History traZODone [Desyrel] 100 mg PO QHS 02/17/17 02/17/17 Unknown History ED Physical Exam - General Limitations: No Limitations General appearance: alert, in no apparent distress - Head Head exam: Present: atraumatic, normocephalic - Eye Eye exam: Present: normal appearance - ENT ENT exam: Present: mucous membranes moist - Neck Neck exam: Present: normal inspection. Absent: tenderness, meningismus - Respiratory Respiratory exam: Present: normal lung sounds bilaterally. Absent: respiratory distress - Cardiovascular Cardiovascular Exam: Present: regular rate, normal rhythm. Absent: systolic murmur, diastolic murmur, rubs, gallop - GI/Abdominal GI/Abdominal exam: Present: soft, tenderness (mild epigastric tenderness to deep palpation reproduces patient's symptoms), normal bowel sounds. Absent: distended, guarding, rebound, rigid - Extremities Exam Extremities exam: Present: normal inspection - Back Exam Back exam: Present: normal inspection - Neurological Exam Neurological exam: Present: alert, oriented X3, CN II-XII intact. Absent: motor sensory deficit - Psychiatric Psychiatric exam: Present: normal affect, normal mood - Skin Skin exam: Present: warm, dry, intact, normal color. Absent: rash ED Course Vital Signs 11/22/17 11/22/17 11/22/17 05:12 05:28 08:32 Temperature 98.3 F Pulse Rate 111 H 114 H Respiratory 16 16 18 Rate Blood Pressure 135/85 149/86 [Left] O2 Sat by Pulse 98 98 96 Oximetry - Reevaluation(s) Reevaluation #1: Spoke with . Admit to Med/Surg. Will place on remote telemetry due to tachycardia. Additional fluids. Thyroid profile added. Discussed CT report. Further evaluation per hospitalist staff. I do not think the patient has sepsis. 11/22/17 09:52 ED Medical Decision Making - Lab Data Result diagrams: 11/22/17 05:38 11/22/17 05:38 Laboratory Results - last 24 hr 11/22/17 11/22/17 11/22/17 05:10 05:38 05:38 WBC 8.8 RBC 4.34 Hgb 12.8 Hct 38.8 MCV 90 MCH 30 MCHC 33 RDW 14.0 Plt Count 218 Lymph % (Auto) 6.1 L [place] % (Auto) 5.2 Eos % (Auto) 0.3 Baso % (Auto) 0.3 Lymph # 0.5 L [place] # 0.5 Eos # 0.0 Baso # 0.0 Seg Neutrophils % 88.1 H Seg Neutrophils # 7.7 Sodium 143 Potassium 4.8 Chloride 105.1 Carbon Dioxide 25 Anion Gap 18 BUN 11 Creatinine 0.6 L Estimated GFR > 60 BUN/Creatinine Ratio 18 Glucose 148 H Calcium 8.8 Total Bilirubin 0.30 AST 13 ALT 15 Alkaline Phosphatase 134 H Total Protein 7.3 Albumin 4.3 Albumin/Globulin Ratio 1.4 Amylase 94 Lipase 17 Urine Color Yellow Urine Turbidity Clear Urine pH 5.0 Ur Specific [place] 1.029 Urine Protein 30 mg/dl Urine Glucose (UA) Neg Urine Ketones Neg Urine Blood Sm Urine Nitrite Neg Urine Bilirubin Neg Urine Urobilinogen < 2.0 Ur Leukocyte Esterase Mod Urine WBC (Auto) 14.0 H Urine RBC (Auto) 10.0 U Epithel Cells (Auto) 26.0 H Urine Bacteria (Auto) 4+ Urine Mucus 2+ Laboratory Results - last 24 hr 11/22/17 11/22/17 11/22/17 05:10 05:38 05:38 WBC 8.8 RBC 4.34 Hgb 12.8 Hct 38.8 MCV 90 MCH 30 MCHC 33 RDW 14.0 Plt Count 218 Lymph % (Auto) 6.1 L [place] % (Auto) 5.2 Eos % (Auto) 0.3 Baso % (Auto) 0.3 Lymph # 0.5 L [place] # 0.5 Eos # 0.0 Baso # 0.0 Seg Neutrophils % 88.1 H Seg Neutrophils # 7.7 Sodium 143 Potassium 4.8 Chloride 105.1 Carbon Dioxide 25 Anion Gap 18 BUN 11 Creatinine 0.6 L Estimated GFR > 60 BUN/Creatinine Ratio 18 Glucose 148 H Calcium 8.8 Total Bilirubin 0.30 AST 13 ALT 15 Alkaline Phosphatase 134 H Total Protein 7.3 Albumin 4.3 Albumin/Globulin Ratio 1.4 Amylase 94 Lipase 17 Urine Color Yellow Urine Turbidity Clear Urine pH 5.0 Ur Specific [place] 1.029 Urine Protein 30 mg/dl Urine Glucose (UA) Neg Urine Ketones Neg Urine Blood Sm Urine Nitrite Neg Urine Bilirubin Neg Urine Urobilinogen < 2.0 Ur Leukocyte Esterase Mod Urine WBC (Auto) 14.0 H Urine RBC (Auto) 10.0 U Epithel Cells (Auto) 26.0 H Urine Bacteria (Auto) 4+ Urine Mucus 2+ - Radiology Data Radiology results: report reviewed (nondilated colon containing fluid throughout , possible diarrhea. Esophageal thickening, large fibroid. No other acute process) Critical care attestation.: If time is entered above; I have spent that time in minutes in the direct care of this critically ill patient, excluding procedure time. ED Disposition Clinical Impression: Enteritis, Esophagitis, Elevated lactic acid level, HIV positive, Hyperglycemia , Tachycardia Disposition: OP ADMIT IP TO THIS HOSP Is pt being admited?: Yes Does the pt Need Aspirin: No Condition: Stable Referrals: PRIMARY CARE, [Primary Care Provider] - 3-5 Days Time of Disposition: 09:52
[2017-11-22] MEDS ORDERED: NACL 0.9% 1000 ML 1,000 ML IV ONE ×2 (06:57→09:49)
[2017-11-22] MEDS ORDERED: ZOFRAN IV ONE (06:57)
[2017-11-22] MEDS ORDERED: MORPHINE IV ONE (06:57)
[2017-11-22] MEDS ORDERED: LEVAQUIN 750MG/150ML 750 MG/150 ML BAG IV ONE (07:30)
[2017-11-22] MEDS ORDERED: DILAUDID IV ONE (07:52)
[2017-11-22 08:01] LABS: INR 0.95 (0.87-1.13)
[2017-11-22 08:02] LABS: Partial Thromboplastin Time 28.1 Sec. (24.2-36.6)
[2017-11-22 08:11] LABS: Creatine Kinase MB < 1.0 ng/mL (0.0-4.0)
--- NOTE | 2017-11-22 08:54 | Cat Scan Report ---
CT ABDOMEN AND PELVIS WITH CONTRAST INDICATION: Epigastric pain, vomiting, diarrhea. HIV. COMPARISON: None similar. FINDINGS: Abdomen and pelvis CT performed following oral contrast and intravenous administration of 100 cc of Omnipaque 300. LUNG BASES: Nonspecific distal esophageal wall prominence/thickening, not excluded for gastroesophageal reflux and/or hiatal hernia, amongst others. ABDOMEN: Expected post cholecystectomy biliary tree appearance with CBD caliber at the kerri hepatis upto 1.2 cm, tapering on either side. Liver, spleen, pancreas, adrenals, aorta and IVC within normal limits. No ascites or size significant adenopathy. Nonopacified GI tract evaluation limited, though grossly nonobstructive. Normal appendix. Nondilated colon containing fluid throughout/possible diarrhea. Small fat-containing umbilical hernia with a transverse neck of 1 cm. PELVIS: Large, approximately 12 cm AP x 7.4 cm transverse slightly hypodense possible fibroid on the left as on axial image 74, series 2, amongst others, and about 9.7 cm craniocaudal. Few pelvic phleboliths. Nonopacified, suboptimally distended urinary bladder and rectosigmoid assessment limited, though grossly unremarkable. No free fluid or significant adenopathy. Mild levoscoliosis apex about L1-L2. Mild multilevel spinal degenerative spurring, greatest lower thoracic. CONCLUSION: No acute significant CT abnormality with various findings as possible diarrhea, large non-calcified uterine fibroid, cholecystectomy and distal esophageal prominence/thickening, amongst others, as detailed above. Please correlate. Thank you for the opportunity to participate in this patient's care.
[2017-11-22] MEDS ORDERED: PROTONIX IV ONE (09:49)
[2017-11-22] MEDS ORDERED: DILAUDID ONE (10:08)
[2017-11-22 10:53] LABS: Free T4 (Free Thyroxine) 1.16 ng/dL (0.76-1.46)
[2017-11-22] MEDS ORDERED: MORPHINE IV PRN (15:57)
--- NOTE | 2017-11-22 16:07 | History and Physical Report ---
History of Present Illness Date of examination: 11/22/17 Date of admission: 11/22/17 09:55 Chief complaint: Vomiting History of present illness: 57-year-old female with past medical history significant for HIV, epilepsy, diabetes mellitus, multiple sclerosis presented to the emergency department complaining of vomiting and diarrhea that started yesterday afternoon. She had recurrent vomiting of ingested food, And many times. Patient is also complaining recurrent diarrhea. Patient is also complaining epigastric pain 2 out of 15 intensity with no radiation, no aggravating factors. Patient denied dysuria, urgency or frequency. Patient said she has been adherent to HIV medications. Nothing unusual in her diet. REVIEW OF SYSTEMS: GENERAL: no weight change, no fatigue, no fever HEAD: no head ache EYES: no blurry vision, no acute visual loss EARS: no hearing loss, no discharge, no earache NOSE: no stuffiness, no sneezing, no discharge MOUTH, THROAT AND NECK: no bleeding gums, no sore throat, no swollen neck CARDIAC: no palpitations, no dyspnea on exertion, no orthopnea, no PND, no edema , no chest pain RESPIRATORY: no shortness of breath, no wheeze, no cough, no sputum, no hemoptysis, no asthma GI: As stated in the HPI. URINARY: no change in frequency, no urgency, no polyuria, no hematuria, no incontinence MUSCULOSKELETAL: no muscle weakness, no pain, no joint stiffness NEUROLOGIC: no loss of sensation/numbness, no tingling, no tremors, no weakness/ paralysis HEMATOLOGIC: no anemia, no easy bruising SKIN: no rashes ENDOCRINE: no heat/cold intolerance, no polyuria, no polydipsia, no thyroid problems PSYCHIATRIC: no anxiety, no depression, no suicidal ideations Past History Past Medical History: diabetes, seizures, other (hiv) Past Surgical History: cholecystectomy, mastectomy Social history: full code. denies: smoking, alcohol abuse, prescription drug abuse, IV drug use Family history: diabetes, stroke Medications and Allergies Allergies Allergy/AdvReac Type Severity Reaction Status Date / Time aspirin Allergy Unknown Verified 09/27/16 19:21 codeine Allergy Nausea Verified 11/22/17 07:51 doxycycline Allergy Rash Verified 09/27/16 19:21 Penicillins Allergy Rash Verified 09/27/16 19:21 Sulfa (Sulfonamide Allergy Hives Verified 11/22/17 07:51 Antibiotics) yellow dye Allergy Nausea Verified 09/27/16 19:21 meperidine [From Demerol] AdvReac Anaphylaxis Verified 11/22/17 07:51 morphine AdvReac Anaphylaxis Verified 11/22/17 07:51 Home Medications Medication Instructions Recorded Confirmed Last Taken Type PARoxetine [Paxil] 40 mg PO TID 02/17/17 11/22/17 11/21/17 History carBAMazepine [TEGretol] 200 mg PO TID 02/17/17 11/22/17 11/21/17 History Elviteg/Cob/Emtri/Tenof Alafen 1 each PO DAILY 11/22/17 11/22/17 11/21/17 History [Genvoya Tablet] Active Meds: Active Medications Carbamazepine (Tegretol) 200 mg PO TID LUIS FERNANDO Enoxaparin Sodium (Lovenox) 40 mg SUB-Q QDAY@2200 LUIS FERNANDO Famotidine (Pepcid) 20 mg PO BID LUIS FERNANDO Levofloxacin/Dextrose (Levaquin 750mg/150ml) 750 mg in 150 mls @ 100 mls/hr IV Q24HR LUIS FERNANDO; Protocol Sodium Chloride (Nacl 0.9% 1000 Ml) 1,000 mls @ 75 mls/hr IV DIRECT LUIS FERNANDO Miscellaneous Medication (Elviteg/Cob/Emtri/Tenof Alafen [Genvoya Tablet]) 1 each PO DAILY LUIS FERNANDO Morphine Sulfate (Morphine) 2 mg IV Q4H PRN PRN Reason: Pain, Moderate (4-6) Paroxetine HCl (Paxil) 40 mg PO TID LUIS FERNANDO Exam - Physical Exam Narrative exam: Not in cardiopulmonary distress. The patient is obese. Vital signs as documented. Head exam is unremarkable. No scleral icterus . Neck is without jugular venous distension, thyromegaly, or carotid bruits. Lungs are clear to auscultation. Cardiac exam reveals regular rate and Rhythm. First and second heart sounds normal. No murmurs, rubs or gallops. Abdominal exam reveals normal bowel sounds, no masses, no organomegaly and no aortic enlargement. Extremities are nonedematous and both femoral and pedal pulses are normal. PEDIATRIC PHYSICIAN: Alert and oriented 3. No focal weakness. - Constitutional Vitals: Temp Pulse Resp BP Pulse Ox 98.3 F 114 H 18 149/86 96 11/22/17 05:12 11/22/17 08:32 06/06/18 08:32 11/22/17 08:32 11/22/17 08:32 Results - Labs CBC & Chem 7: 11/22/17 05:38 11/22/17 05:38 Labs: Laboratory Last Values WBC 8.8 K/mm3 (4.5-11.0) 11/22/17 05:38 RBC 4.34 M/mm3 (3.65-5.03) 11/22/17 05:38 Hgb 12.8 gm/dl (10.1-14.3) 11/22/17 05:38 Hct 38.8 % (30.3-42.9) 11/22/17 05:38 MCV 90 fl (79-97) 11/22/17 05:38 MCH 30 pg (28-32) 11/22/17 05:38 MCHC 33 % (30-34) 11/22/17 05:38 RDW 14.0 % (13.2-15.2) 11/22/17 05:38 Plt Count 218 K/mm3 (140-440) 11/22/17 05:38 Lymph % (Auto) 6.1 % (13.4-35.0) L 11/22/17 05:38 [place] % (Auto) 5.2 % (0.0-7.3) 11/22/17 05:38 Eos % (Auto) 0.3 % (0.0-4.3) 11/22/17 05:38 Baso % (Auto) 0.3 % (0.0-1.8) 11/22/17 05:38 Lymph # 0.5 K/mm3 (1.2-5.4) L 11/22/17 05:38 [place] # 0.5 K/mm3 (0.0-0.8) 11/22/17 05:38 Eos # 0.0 K/mm3 (0.0-0.4) 11/22/17 05:38 Baso # 0.0 K/mm3 (0.0-0.1) 11/22/17 05:38 Seg Neutrophils % 88.1 % (40.0-70.0) H 11/22/17 05:38 Seg Neutrophils # 7.7 K/mm3 (1.8-7.7) 11/22/17 05:38 PT 13.2 Sec. (12.2-14.9) 11/22/17 07:03 INR 0.95 (0.87-1.13) 11/22/17 07:03 APTT 28.1 Sec. (24.2-36.6) 11/22/17 07:03 Sodium 143 mmol/L (137-145) 11/22/17 05:38 Potassium 4.8 mmol/L (3.6-5.0) 11/22/17 05:38 Chloride 105.1 mmol/L (98-107) 11/22/17 05:38 Carbon Dioxide 25 mmol/L (22-30) 11/22/17 05:38 Anion Gap 18 mmol/L 11/22/17 05:38 BUN 11 mg/dL (7-17) 11/22/17 05:38 Creatinine 0.6 mg/dL (0.7-1.2) L 11/22/17 05:38 Estimated GFR > 60 ml/min 11/22/17 05:38 BUN/Creatinine Ratio 18 % 11/22/17 05:38 Glucose 148 mg/dL (65-100) H 11/22/17 05:38 Lactic Acid 3.60 mmol/L (0.7-2.0) H* 11/22/17 07:03 Calcium 8.8 mg/dL (8.4-10.2) 11/22/17 05:38 Magnesium 2.00 mg/dL (1.7-2.3) 11/22/17 07:03 Total Bilirubin 0.30 mg/dL (0.1-1.2) 11/22/17 05:38 AST 13 units/L (5-40) 11/22/17 05:38 ALT 15 units/L (7-56) 11/22/17 05:38 Alkaline Phosphatase 134 units/L (35-129) H 11/22/17 05:38 Total Creatine Kinase 48 units/L (30-135) 11/22/17 07:03 CK-MB (CK-2) < 1.0 ng/mL (0.0-4.0) 11/22/17 07:03 CK-MB (CK-2) Rel Index 2.0 (0-4) 11/22/17 07:03 Troponin T < 0.010 ng/mL (0.00-0.029) 11/22/17 07:03 NT-Pro-B Natriuret Pep 60.69 pg/mL (0-900) 11/22/17 07:03 Total Protein 7.3 g/dL (6.3-8.2) 11/22/17 05:38 Albumin 4.3 g/dL (3.9-5) 11/22/17 05:38 Albumin/Globulin Ratio 1.4 % 11/22/17 05:38 Amylase 94 units/L (27-131) 11/22/17 05:38 Lipase 17 units/L (13-60) 11/22/17 05:38 TSH 0.711 mlU/mL (0.270-4.200) 11/22/17 09:58 Free T4 1.16 ng/dL (0.76-1.46) 11/22/17 09:58 Urine Color Yellow (Yellow) 11/22/17 05:10 Urine Turbidity Clear (Clear) 11/22/17 05:10 Urine pH 5.0 (5.0-7.0) 11/22/17 05:10 Ur Specific [place] 1.029 (1.003-1.030) 11/22/17 05:10 Urine Protein 30 mg/dl mg/dL (Negative) 11/22/17 05:10 Urine Glucose (UA) Neg mg/dL (Negative) 11/22/17 05:10 Urine Ketones Neg mg/dL (Negative) 11/22/17 05:10 Urine Blood Sm (Negative) 11/22/17 05:10 Urine Nitrite Neg (Negative) 11/22/17 05:10 Urine Bilirubin Neg (Negative) 11/22/17 05:10 Urine Urobilinogen < 2.0 mg/dL (<2.0) 11/22/17 05:10 Ur Leukocyte Esterase Mod (Negative) 11/22/17 05:10 Urine WBC (Auto) 14.0 /HPF (0.0-6.0) H 11/22/17 05:10 Urine RBC (Auto) 10.0 /HPF (0.0-6.0) 11/22/17 05:10 U Epithel Cells (Auto) 26.0 /HPF (0-13.0) H 11/22/17 05:10 Urine Bacteria (Auto) 4+ /HPF (Negative) 11/22/17 05:10 Urine Mucus 2+ /HPF 11/22/17 05:10 Blood Type O POSITIVE 11/22/17 07:05 Antibody Screen Negative 11/22/17 07:05 Assessment and Plan Assessment and plan: 57-year-old female with past medical history significant for HIV, epilepsy, diabetes mellitus, multiple sclerosis presented to the emergency department complaining of recurrent vomiting and diarrhea.\ Recurrent nausea and vomiting - Symptomatic treatment, IV fluids Lactic acidosis - IV fluids, will check lactic acid level this after noon Dehydration -Likely due to recurrent nausea and vomiting UTI - On IV level Diabetes mellitus type 2 - Diet controlled HIV; continue home medications DVT prophylaxis - Lovenox Disposition - Admit to MedSurg floor. Advance Directives: Yes VTE prophylaxis?: Chemical Plan of care discussed with patient/family: Yes
[2017-11-22] MEDS: NACL 0.9% 1000 ML 1,000 ML IV SCH (18:45)
[2017-11-22] MEDS ORDERED: ZOFRAN IV PRN (19:40)
[2017-11-22] MEDS: PAXIL PO SCH (20:19)
[2017-11-22] MEDS ORDERED: LOVENOX SUB-Q SCH (22:00)
[2017-11-22] MEDS: PEPCID PO SCH (22:48)
[2017-11-23] MEDS ORDERED: IMODIUM PO ONE (04:52)
[2017-11-23] MEDS ORDERED: TYLENOL PO PRN (04:53)
[2017-11-23 06:03] LABS: BUN/Creatinine Ratio 12; Blood Urea Nitrogen 6 mg/dL (7-17); Calcium 8.1 mg/dL (8.4-10.2); Hemolysis Index 15
[2017-11-23] MEDS: NACL 0.9% 1000 ML 1,000 ML IV SCH (06:57)
[2017-11-23 08:43] VITALS: BP 157/75
[2017-11-23] MEDS: PAXIL PO SCH (09:44)
[2017-11-23] MEDS: PEPCID PO SCH (09:45)
[2017-11-23] MEDS ORDERED: NON-FORMULARY (Elviteg/Cob/Emtri/Tenof Alafen [Genvoya Tablet] 1 EACH) PO SCH (10:00)
[2017-11-23] MEDS ORDERED: LEVAQUIN 750MG/150ML 750 MG/150 ML BAG IV SCH (10:00)
--- NOTE | 2017-11-23 11:22 | Discharge Summary ---
Providers - Providers Date of Admission: 11/22/17 09:55 Attending physician: WOOD BIRD MD Primary care physician: MORGUE LIBRARIAN Hospitalization Reason for admission: nausea and vomiting, UTI Condition: Stable Pertinent studies: CT abdomen and pelvis normal findings Hospital course: 57-year-old female with past medical history significant for HIV, epilepsy, diabetes mellitus, multiple sclerosis presented to the emergency department complaining of vomiting and diarrhea that started yesterday afternoon. She had recurrent vomiting of ingested food, And many times. Patient is also complaining recurrent diarrhea. Patient is also complaining epigastric pain 2 out of 15 intensity with no radiation, no aggravating factors. Patient denied dysuria, urgency or frequency. Patient said she has been adherent to HIV medications. Nothing unusual in her diet. Patient was admitted for intractable nausea, vomiting, diarrhea, UTI, lactic acidosis and tachycardia. patient was treated with IV antibiotics, IV fluids, symptomatic treatment. Patient showed improvement, tolerate regular diet lactic acidosis subsided and discharged with PO antibiotics. Disposition: DC-01 TO HOME OR SELFCARE Time spent for discharge: 31 minutes - Discharge Diagnoses (1) Elevated lactic acid level Status: Acute (2) Enteritis Status: Acute (3) Esophagitis Status: Acute (4) HIV positive Status: Acute (5) Tachycardia Status: Acute (6) Syncope Status: Acute Core Measure Documentation - Palliative Care Palliative Care/ Comfort Measures: Not Applicable - Core Measures Any of the following diagnoses?: none Exam - Physical Exam Narrative exam: Not in cardiopulmonary distress. The patient is obese. Vital signs as documented. Head exam is unremarkable. No scleral icterus . Neck is without jugular venous distension, thyromegaly, or carotid bruits. Lungs are clear to auscultation. Cardiac exam reveals regular rate and Rhythm. First and second heart sounds normal. No murmurs, rubs or gallops. Abdominal exam reveals normal bowel sounds, no masses, no organomegaly and no aortic enlargement. Extremities are nonedematous and both femoral and pedal pulses are normal. STEAMBOAT INSPECTOR: Alert and oriented 3. No focal weakness. - Constitutional Vitals: Temp Pulse Resp BP Pulse Ox 98.1 F 79 20 157/75 98 11/23/17 07:15 11/23/17 07:15 11/23/17 07:15 11/23/17 04:28 11/23/17 07:15 Plan Activity: no restrictions Weight Bearing Status: Full Weight Bearing Diet: low fat Additional Instructions: Follow up at [facility] in 1-2 weeks Follow up with: PRIMARY CARE,MD [Primary Care Provider] - 3-5 Days Prescriptions: carBAMazepine [TEGretol] 200 mg PO TID #90 tablet Famotidine [Pepcid] 20 mg PO BID #28 tablet Levofloxacin [Levaquin] 250 mg PO QDAY #5 tablet Ondansetron [Zofran ODT TAB] 4 mg PO Q8HR #12 tab.rapdis
== END 2017-11-23 12:32 | disposition home or self-care (01) | DRG 690 ==
LOC: ED 05:05 → 3A 09:55
PROVIDERS: ADMIT Internal Medicine; ATTEND Internal Medicine
DX: N39.0 Urinary tract infection, site not specified (principal); E87.2 Acidosis; K52.9 Noninfective gastroenteritis and colitis, unspecified; R00.0 Tachycardia, unspecified; R79.89 Other specified abnormal findings of blood chemistry; K20.9 Esophagitis, unspecified; G40.909 Epilepsy, unspecified, not intractable, without status epilepticus; G35 Multiple sclerosis; R55 Syncope and collapse; E86.0 Dehydration; E11.65 Type 2 diabetes mellitus with hyperglycemia; Z90.49 Acquired absence of other specified parts of digestive tract; Z82.3 Family history of stroke; Z83.3 Family history of diabetes mellitus; Z88.5 Allergy status to narcotic agent; Z88.0 Allergy status to penicillin; Z88.2 Allergy status to sulfonamides; Z88.6 Allergy status to analgesic agent; Z88.1 Allergy status to other antibiotic agents; Z91.041 Radiographic dye allergy status; Z90.710 Acquired absence of both cervix and uterus; Z91.14 Patient's other noncompliance with medication regimen; Z90.11 Acquired absence of right breast and nipple
CPT/HCPCS: 36415; 74177; 80048; 80053; 81001; 82140; 82150; 82550; 82553; 82962; 83690; 83735; 83880; 84439; 84443; 84484; 85025; 85610; 85730; 86850; 86900; 86901; 87086; 93005; 93010; 96365; 96366; 96375; C9113; J1170; J1650; J1956; J2405; J7030; Q9967

== ENCOUNTER 2018-11-20 14:59 | Emergency (ER) | payer SELFPAY ==
--- NOTE | 2018-11-20 15:56 | Emergency Department Report ---
HPI - General Chief Complaint: Seizure Time Seen by Provider: 11/20/18 15:20 - HPI HPI: 58-year-old female presents to the emergency department via EMS after she had 2 syncopal episodes and seizures. The patient was going to a store with her daughter when she noticed a flash of light reflecting off of a glass door that she was about to enter and said that she started feeling abnormal. She said that she started having a numbness in her head, dizziness, shortness of breath, and then she passed out into her daughter's arms and had some subsequent seizure-like activity. She recovered from this and thought that she was doing better and was in the car with her daughter, and was in the parking lot of the doctor's office, when the same set of symptoms occurred again. She has a past medical history of HIV, myu-axypjuq-dhidqtlea diabetes, and epilepsy. She takes medication for HIV but is diet controlled diabetes. The patient says that she is on Epitol for her seizures but has been out of medication for 1 month as they are too expensive. She denies any tobacco or illicit drug use. No recent travel or sick contacts. She does not have a primary care physician. ED Past Medical Hx - Past Medical History Previous Medical History?: Yes Hx Hypertension: Yes Hx Diabetes: Yes (Diet controlled.) Hx Seizures: Yes Hx HIV: Yes Additional medical history: tachycardia,irreg HR,multiple sclerosis,breast CA - Surgical History Past Surgical History?: Yes Additional Surgical History: right mastectomy 2005 - Social History Smoking Status: Never Smoker Substance Use Type: None - Medications Home Medications: Home Medications Medication Instructions Recorded Confirmed Last Taken Type PARoxetine [Paxil] 40 mg PO TID 02/17/17 11/22/17 11/21/17 History Elviteg/Cob/Emtri/Tenof Alafen 1 each PO DAILY 11/22/17 11/22/17 11/21/17 History [Genvoya Tablet] Famotidine [Pepcid] 20 mg PO BID #28 tablet 11/23/17 Unknown Rx Ondansetron [Zofran ODT TAB] 4 mg PO Q8HR #12 tab.rapdis 11/23/17 Unknown Rx levoFLOXacin [Levaquin] 250 mg PO QDAY #5 tablet 11/23/17 Unknown Rx carBAMazepine [TEGretol] 200 mg PO TID #90 tablet 11/20/18 Unknown Rx ED Review of Systems ROS: Stated complaint: SEIZURES Other details as noted in HPI Comment: All other systems reviewed and negative Constitutional: denies: chills, fever Eyes: denies: eye pain, vision change ENT: denies: ear pain, throat pain Respiratory: shortness of breath. denies: cough Cardiovascular: syncope. denies: chest pain Gastrointestinal: denies: abdominal pain, vomiting Genitourinary: denies: dysuria, discharge Musculoskeletal: denies: back pain, arthralgia Skin: denies: rash, lesions Neurological: headache, other (seizure) Physical Exam - Physical Exam Vital Signs: Vital Signs 11/20/18 11/20/18 15:07 15:14 Temperature 99 F 98.6 F Pulse Rate 86 89 Respiratory 16 15 Rate Blood Pressure 188/101 188/101 Blood Pressure 188/101 [Left] O2 Sat by Pulse 96 100 Oximetry Physical Exam: GENERAL: The patient is well-developed well-nourished. HENT: Normocephalic. Atraumatic. Patient has moist mucous membranes. EYES: Extraocular motions are intact. Pupils equal reactive to light bilaterally. No nystagmus. NECK: Supple. Trachea is midline. CHEST/LUNGS: Clear to auscultation. There is no respiratory distress noted. HEART/CARDIOVASCULAR: Regular. There is no tachycardia. There is no murmur. ABDOMEN: Abdomen is soft, nontender. Patient has normal bowel sounds. There is no abdominal distention. SKIN: Skin is warm and dry. NEURO: The patient is awake, alert, and oriented. The patient is cooperative. The patient has no focal neurologic deficits. The patient has normal speech. Cranial nerves II through XII grossly intact. No pronator drift. No dysmetria. MUSCULOSKELETAL: There is no tenderness or deformity. There is no limitation range of motion. There is no evidence of acute injury. ED Course Vital Signs 11/20/18 11/20/18 15:07 15:14 Temperature 99 F 98.6 F Pulse Rate 86 89 Respiratory 16 15 Rate Blood Pressure 188/101 188/101 Blood Pressure 188/101 [Left] O2 Sat by Pulse 96 100 Oximetry ED Medical Decision Making - Lab Data Result diagrams: 11/20/18 15:28 11/20/18 15:28 - EKG Data -: EKG Interpreted by Mt EKG shows normal: sinus rhythm, axis, intervals, QRS complexes (LVH), ST-T waves Rate: normal - EKG Data When compared to previous EKG there are: previous EKG unavailable Interpretation: LVH - Radiology Data Radiology results: report reviewed, image reviewed interpreted by me: Chest x-ray does not show any acute process. There are no pleural effusions, obvious pneumonia and there is no pneumothorax. PROCEDURE: CT HEAD/BRAIN WO CON TECHNIQUE: Computerized tomography of the head was performed without contrast material. CT DOSE LENGTH PRODUCT: 805.4 mGycm HISTORY: seizure, headache COMPARISONS: 02/18/2017 . FINDINGS: No CT evidence of intracranial mass, hemorrhage, acute territorial infarction, or hydrocephalus. Intracranial arteries are symmetric in density. Calvarium is intact. Paranasal sinuses and mastoids are aerated. IMPRESSION: No CT evidence of acute abnormality . This document is electronically signed by Louise Reeves MD., November 20 2018 04:54:35 PM ET Transcribed By: [facility] Dictated By: LOUISE REEVES M.D. Electronically Authenticated By: LOUISE REEVES M.D. Signed Date/Time: 11/20/18 2606 - Medical Decision Making Patient presents to the emergency department with the complaint of 2 syncopal episodes with some seizure-like activity. Since being in the emergency department she has been awake, alert, oriented. There have been no focal, motor or sensory deficits in her cranial nerves are intact. CT of the head without contrast was performed and resulted as normal examination without any evidence of ischemia, bleed, shift, mass, or any other acute process. The patient also had a chest x-ray that does not show any focal consolidation, pneumothorax, pneumonia, pleural effusions, or any other acute process. Her labs have been unremarkable including CBC, metabolic panel, troponin, TSH. patient has been reevaluated multiple times over multiple hours and there has been no further episodes of passing out or any seizure-like activity. She was given a dose of her Tegretol. She appears safe for discharge home at this time. She was seen ambulatory in the emergency department and appeared stable. She was given a prescription for her Tegretol, referrals for primary care and neurology. She was instructed to return to the emergency department with any further seizure- like activity, worsening of her symptoms, with any acute distress. - Differential Diagnosis epilepsy, substance abuse, dysrhythmia, electrolyte abnormalities Critical Care Time: No Critical care attestation.: If time is entered above; I have spent that time in minutes in the direct care of this critically ill patient, excluding procedure time. ED Disposition Clinical Impression: Seizure, Noncompliance with medication regimen Hypertension Qualifiers: Hypertension type: essential hypertension Qualified Code(s): I10 - Essential (primary) hypertension Disposition: TO HOME OR SELFCARE Is pt being admited?: No Condition: Stable Instructions: Recurrent Seizures Adult (ED), Hypertension (ED) Additional Instructions: Please follow up with a primary care physician in the next few days. I'm giving him multiple local primary care clinics as well as a referral for a neurologist. I am refilling your seizure medication. Return to the emergency Department with any worsening of your symptoms, any further seizure-like activity, or any acute distress. Prescriptions: carBAMazepine [TEGretol] 200 mg PO TID #90 tablet Referrals: [facility] [Outside] - 2-3 Days [facility] [Outside] - 2-3 Days [facility] [Outside] - 2-3 Days [facility] [Outside] - 2-3 Days Time of Disposition: 18:26
[2018-11-20 16:17] LABS: BUN/Creatinine Ratio 14; Blood Urea Nitrogen 7 mg/dL (7-17); Calcium 9.7 mg/dL (8.4-10.2); Hemolysis Index 14
[2018-11-20 16:20] LABS: Mean Corpuscular HGB Conc 34 % (30-34); Mean Corpuscular Volume 88 fl (79-97); Platelet Count 248 K/mm3 (140-440); Red Blood Count 4.11 M/mm3 (3.65-5.03); Red Cell Distribution Width 14.3 % (13.2-15.2)
[2018-11-20 16:20] LABS: Alanine Aminotransferase 14 units/L (7-56); Albumin 3.9 g/dL (3.9-5); Bilirubin,Direct < 0.2 mg/dL (0-0.2)
[2018-11-20] MEDS ORDERED: K-DUR PO ONE (16:23)
--- NOTE | 2018-11-20 16:44 | XRay Report ---
PROCEDURE: XR CHEST 1V AP TECHNIQUE: Chest radiograph single view. HISTORY: SOB COMPARISONS: Chest x-ray dated February 17, 2017 . FINDINGS: There is mild elevation the right hemidiaphragm. There is no evidence of focal infiltrate, pneumothorax or pleural fluid collection. The cardiac silhouette appears to be enlarged similar in appearance to the previous study. There is atherosclerotic vascular calcification of the thoracic aorta. The bony structures are unremarkable. Visualization of detail of the thoracic spine is limited. IMPRESSION: 1. No evidence of an acute pulmonary process. 2. Enlarged cardiac silhouette not significantly changed. This document is electronically signed by Fatoumata Swartz MD., November 20 2018 04:41:58 PM ET
--- NOTE | 2018-11-20 16:56 | Cat Scan Report ---
PROCEDURE: CT HEAD/BRAIN WO CON TECHNIQUE: Computerized tomography of the head was performed without contrast material. CT DOSE LENGTH PRODUCT: 805.4 mGycm HISTORY: seizure, headache COMPARISONS: 02/18/2017 . FINDINGS: No CT evidence of intracranial mass, hemorrhage, acute territorial infarction, or hydrocephalus. Intr acranial arteries are symmetric in density. Calvarium is intact. Paranasal sinuses and mastoids are a erated. IMPRESSION: No CT evidence of acute abnormality . This document is electronically signed by Louise Reeves MD., November 20 2018 04:54:35 PM ET
[2018-11-20] MEDS ORDERED: CATAPRES PO ONE (17:00)
[2018-11-20 18:31] VITALS: BP 159/72
== END 2018-11-20 18:41 | disposition home or self-care (01) ==
LOC: ED 14:59
DX: G40.909 Epilepsy, unspecified, not intractable, without status epilepticus (principal); I10 Essential (primary) hypertension; Z91.14 Patient's other noncompliance with medication regimen
CPT/HCPCS: 36415; 70450; 71045; 80048; 80076; 82550; 84443; 84484; 85027; 85379; 93005; 93010